=== PATIENT | female | born 1970 | race African-American/Black ===

== ENCOUNTER 2016-05-20 18:41 | Emergency (ER) | payer SELFPAY ==
[~2016-05-20] VITALS: Ht 170.2 cm; Wt 88.5 kg
[2016-05-20 20:06] LABS: HEMATOCRIT 47.4 % (36.0-46.0); MCH 25.9 PG (29.0-34.0); MCHC 33.5 G/DL (30.0-36.0); MCV 77.3 FL (83-99); MEAN PLAT.VOLUME 9.6 uM^3 (9.5-12.4); PLATELET COUNT 236 K/uL (156-360); RBC DIS.WIDTH-CV 14.6 % (11.8-14.6); RED BLOOD COUNT 6.13 M/uL (3.80-5.20); WHITE BLOOD COUNT 9.2 K/uL (4.1-10.2)
[2016-05-20] MEDS ORDERED: AUGMENTIN PO (20:12)
[2016-05-20] MEDS ORDERED: PREDNISONE PO (20:13)
[2016-05-20 20:15] LABS: CHLORIDE 103 mEq/L (99-109); POTASSIUM 3.9 mEq/L (3.7-5.4); SODIUM 142 mEq/L (136-147)
[2016-05-20 20:17] LABS: GLUCOSE 96 mg/dL (70-99)
[2016-05-20 20:19] LABS: ANION GAP 11 MEQ/L (2-14); TOTAL BILIRUBIN 0.3 mg/dL (0.0-1.0)
[2016-05-20 20:21] LABS: ALKALINE PHOSPHATASE 115 IU/L (3-129)
[2016-05-20 20:22] LABS: UREA NITROGEN (BUN) 9 mg/dL (9-23)
[2016-05-20 20:25] LABS: GFR ESTIMATE (CALCULATED) > 59 mL/min/
[2016-05-20 20:30] LABS: QUANTITATIVE HCG < 4.0 MIU/ML
[2016-05-21] MEDS ORDERED: NORCO 5/3251 TABLET PO (00:41)
[2016-05-21] MEDS ORDERED: TEGRETOL100 MG PO (00:41)
[2016-05-21 00:56] VITALS: BP 122/70
== END 2016-05-21 00:57 | disposition home or self-care (01) ==
LOC: EME 18:41
PROVIDERS: Physician Assistant
DX: R51 Headache (principal); I10 Essential (primary) hypertension; Z79.52 Long term (current) use of systemic steroids
CPT/HCPCS: 70487; 80053; 83605; 84702; 85027; 99281; 99284; J1885; J2270; J7040